=== PATIENT | male | born 2005 | race Caucasian/White ===

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

== ENCOUNTER 2023-11-15 15:42 | Outpatient (CLI) | payer OTHER, SELFPAY ==
--- NOTE | ~2023-11-15 | XR_ITS ---
XR shoulder LT min 2V DATE: 11/15/2023 16:01 INDICATION: Acute left shoulder pain TECHNIQUE: 4 views COMPARISON: None FINDINGS: Normal alignment at the acromioclavicular and glenohumeral joints. No fracture, dislocation , periosteal reaction or bone destruction or abnormal soft tissue calcification. Mildly elongated left C7 transverse process. IMPRESSION: No significant abnormality of the left shoulder Reviewed, dictated and finalized at location B.
== END 2023-11-15 15:43 ==
LOC: MICIMG 15:46
DX: M25.512 Pain in left shoulder (principal)
CPT/HCPCS: 73030